=== PATIENT | female | born 1935 | race Caucasian/White ===

== ENCOUNTER → 2016-07-01 | Outpatient (CLI) | payer MEDICARE ==
[~2016-07-01] MED LIST: ASPI-558 PO; ATEN-39 PO; BETA1TAB44 PO; CALC-494 PO; LEVO50TA11 PO; LEVO50TA51 PO; SIMV20TA89 PO; ZOLE5INF IV
--- NOTE | 2016-07-01 11:45 | DI ---
INDICATION: ITS.REASON: C90.00 Multiple myeloma not having achieved remission PROCEDURE: CHEST 2-VIEWS UPRIGHT (PA \T\ LAT) Encounter: Subsequent COMPARISON: May 18, 2016 FINDINGS: Linear atelectasis and scarring in the left lower lobe is again noted. The small pleural-based nodules in the left lung are better seen by CT. Right pleural effusion has resolved. No pneumothorax or significant pleural fluid currently. Right lung is clear. Heart size and mediastinal contours are stable. Pulmonary vascularity is normal. Impression: Resolved right pleural effusion. No acute cardiopulmonary disease. .
== END ==
LOC: IMA 09:15
PROVIDERS: ATTEND Internal Medicine Hematology & Oncology
DX: C90.00 Multiple myeloma not having achieved remission (principal); J98.4 Other disorders of lung

== ENCOUNTER 2016-08-01 15:31 | Emergency (ER) | payer MEDICARE ==
[~2016-08-01] VITALS: Ht 158.8 cm; Wt 54.0 kg
[2016-08-01 15:36] VITALS: TEMP 97.1; Ht 158.8 cm; Wt 54.0 kg
--- NOTE | 2016-08-01 15:46 | NUR ---
PROVIDER DR BARRERA IN ROOM W/ PT.
--- NOTE | 2016-08-01 15:55 | NUR ---
UA COLLECTED VOIDED DARK ARMBER CLEAR URINE.
[2016-08-01 16:12] LABS: BLOOD, URINE NEGATIVE (NEGATIVE); COLOR,URINE YELLOW (YELLOW); LEUKOCYTE ESTERASE ,URINE NEGATIVE (NEGATIVE); NITRITE,URINE NEGATIVE (NEGATIVE); UROBILINOGEN,URINE 0.2 EU/DL (NORMAL)
[2016-08-01 16:28] LABS: BASOPHILS % (AUTO) 0.2 % (0-2); EOSINOPHILS # (AUTO) 0.1 T/MM3 (0-0.5); EOSINOPHILS % (AUTO) 1.1 % (0-4); HGB - HEMOGLOBIN 12.4 GM/DL (12-16); IMMATURE GRANULOCYTE # (AUTO) 0.01 T/MM3 (0.00-0.03); IMMATURE GRANULOCYTE % (AUTO) 0.1 % (0.0-0.5); LYMPHOCYTES # (AUTO) 0.7 T/MM3 (1-4.8); LYMPHOCYTES % (AUTO) 8.1 % (23-45); MEAN CORPUSCULAR HGB 32.4 UUG (26-34); MEAN CORPUSCULAR HGB CONC(MCHC 34.4 GM/DL (31-37); MEAN PLATELET VOLUME 8.7 UM3 (9.4-12.4); MONOCYTES # (AUTO) 0.5 T/MM3 (0-0.8); MONOCYTES % (AUTO) 6.5 % (0-9.0); NEUTROPHILS #(AUTO)-ABSOLUTE 6.8 T/MM3 (1.8-7.7); RED BLOOD COUNT 3.83 M/MM3 (4.00-5.20); WBC - WHITE BLOOD COUNT 8.1 T/MM3 (4.5-11.0)
[2016-08-01] MEDS ORDERED: NEOMYCIN/POLYM/BACITR OINT PACKET TOP ONE (16:30)
[2016-08-01 16:36] LABS: ALBUMIN 4.2 G/DL (3.5-5.0); ALBUMIN/GLOBULIN RATIO 1.6 RATIO (1.1-2.2); ALKALINE PHOSPHATASE 31 U/L (38-126); ALT (SGPT) 34 U/L (9-52); ANION GAP 12 MEQ/L (5-15); AST (SGOT) 25 U/L (14-36); BUN/CREATININE RATIO 19 RATIO (6-26); CALCIUM 9.7 MG/DL (8.4-10.2); CHLORIDE 91 MEQ/L (98-107); CO2 - CARBON DIOXIDE 30 MEQ/L (22-30); CREATININE 1.1 MG/DL (0.7-1.2); GLOMERULAR FILTRATION RATE 48; GLUCOSE 133 MG/DL (65-110); POTASSIUM 4.9 MEQ/L (3.6-5); SODIUM 133 MEQ/L (134-144); TOTAL PROTEIN 6.9 G/DL (6.3-8.2)
--- NOTE | 2016-08-01 16:50 | NUR ---
CT SCAN PT GONE TO CT SCAN.
--- NOTE | 2016-08-01 17:00 | NUR ---
CT SCAN PT BACK FROM CT SCAN.
--- NOTE | 2016-08-01 17:55 | ERPDOC ---
Departure Disposition Decision Date: August 01, 2016 Disposition Decision Time: 18:25 Disposition: 01 DISCHARGED HOME, SELF-CARE Impression Impression Impression: Primary Impression: Confusion Additional Impression: Frontal mass of brain Severity: Moderate Condition: Stable Seen By: Physician only Referrals: YON NETTLES MD (PCP) Patient Instructions: Hypertension (ED) Problems/Meds/Labs Reviewed?: Yes Medications reviewed and manag: Yes Additional Instructions: You have a Radiology appointment in the morning tomorrow. I have added an MRI BRAIN to your schedule. Please call Dr Blood's office after it is completed to let him know. It will take a day or two to be read and he may want to add other tests before you see him. Your blood pressure is elevated tonight and you were given a dose of Lisinopril 10mg. Follow up care ordered?: Yes Mental Status: Alert HPI - CVA/Neuro General Chief Complaint: Altered Mental Status Stated Complaint: DIFFICULTY THINKING CLEARLY Time Seen by Provider: 15:46 HPI - CVA/NEURO Initial Comments 81-year-old female presents with progressive difficulty thinking. She was [facility] daughter today and tried to answer written question with yes or no. She began writing sentence then Marking things out, ultimately writing things that made no sense. Her daughter at the thinking about it and realized that she has had some confusion which has been progressing over the last several weeks. Daughter state that she is forgetful, seems to answer vaguely when asked questions. Has difficulty keeping up in conversation, but has done a fairly good job of covering it by being vague. No fevers or chills, no dysuria. Patient did have an episode like this previously when she had a UTI. She does have a history of endometrial cancer and there is apparently some metastatic disease. She is currently seeing Dr. Blood. She is scheduled for some testing tomorrow with the daughters wanted to bring her in [facility] to get a better evaluation earlier. Patient has no cough, no history of dyspnea. Denies any muscle aches. States she feels good overall. She does have a history of hypertension, daughters think she may have missed her morning medication today, the patient thinks she took it. Allergies: Coded Allergies: No Known Drug Allergies (Verified Allergy, Unknown, 03/12/16) Past History Past Medical History Metabolic: hypertension Surgical History General: colonoscopy Vaccines Hx Influenza Vaccination: No (NOV 2014) Hx Pneumococcal Vaccination: Yes (3 YEARS AGO) Social History Smoking Status: Never smoker Does patient use chewing tobac: No Second Hand Exposure: No Substance Use Type: does not use Alcohol Intake: none Record Review Pertinent history updated: Yes Review of Systems General: see HPI Neurological General: see HPI All other Systems All Other Systems: Reviewed and Negative Physical Exam General General Nourishment: well nourished, well developed, appears stated age, no acute distress Vitals and Pain First Documented Vital Signs Date Time Temp Pulse Resp B/P Pulse Ox O2 Delivery O2 Flow Rate FiO2 08/01/16 15:36 97.1 82 18 191/93 92 Room Air Weight: Kilograms: 54.000 Height (feet): 5 Height (inches): 2.50 Triage Pain Scale: Comments Patient is extremely pleasant. However when she answers questions she does tend to hedge. Normal Exams: Head: Normocephalic w/o trauma Eyes: Pupils are PERRLA w/ EOMI, No scleral icterus, irritation, or foreign bodies noted Chest/Resp: Clear all [place], with good airflow, and symmetry bilaterally CV: Regular rate and rhythm, without murmur or gallop, Pulses 2+ all extremities, capillary refill, <2 seconds all ext., no pedal edema noted Abdomen: Bowel sounds positive, soft, non-tender, non-distended, no hepatosplenomegaly, masses or bruits noted Neurologic (brief) Neurological Brief: FOUND: CN w/o gross def to obs, DTR 2/4 all extremities, gait w/o gross def to obs, motor-no gross deficits, sensory-no gross deficits Comments Patient is alert and oriented 2, however she has difficulty answering specific questions. She often repeats part of the question within the answer. Differential Diagnoses Considering: Thrombotic CVA, Hemorrhagic CVA, Delirium, Dementia, Drug Overdose , Encephalitis, Hypothyroid, Medication Effect, Meningitis, Psychogenic Progress Results/Orders Orders Procedure Category Date Status Time Ua, Dip Wreflex LAB 08/01/16 Complete Microsc & Chemistry Quality Control Technician 16:02 Cbc W/Auto LAB 08/01/16 Complete Diff-Reflex Manual Cmp - Comprehensive LAB 08/01/16 Complete Metabolic Neomycin/Polymyxin/Bacitracin PHA 08/01/16 Complete (Neosporin 16:30 Tsh With Reflex T4 LAB 08/01/16 Complete Free 16:41 Urine Culture CARY 08/01/16 Logged 16:42 Ct Head W/O Contrast CT 08/01/16 Taken 16:47 Mri Brain W/O Contrast MRI 08/01/16 Logged 17:38 Lisinopril (Prinivil) PHA 08/01/16 Complete 18:00 Lab Results Laboratory Tests Test 08/01/16 15:55 08/01/16 16:09 08/01/16 16:13 Urine Collection Type Cleancatch-midstream Urine Color Yellow Urine Turbidity Clear Urine pH 5.5 Urine Specific [place] 1.025 Urine Protein Negative Urine Glucose (UA) Negative Urine Ketones Trace Urine Blood Negative Urine Nitrite Negative Urine Bilirubin Negative Urine Urobilinogen 0.2EU/DL Urine Leukocyte Esterase Negative Urinalysis Comment Microscopic not ind. Thyroid Stimulating Hormone (TSH) 0.89MIU/L White Blood Count 8.1T/MM3 Red Blood Count 3.83M/MM3 Hemoglobin 12.4GM/DL Hematocrit 36.0% Mean Corpuscular Volume 94.0UM3 Mean Corpuscular Hemoglobin 32.4UUG Mean Corpuscular Hemoglobin Concent 34.4GM/DL RDW Standard Deviation 40.8FL Platelet Count 291T/MM3 Mean Platelet Volume 8.7UM3 Immature Granulocyte % (Auto) 0.1% Neutrophils (%) (Auto) 84.0% Lymphocytes (%) (Auto) 8.1% Monocytes (%) (Auto) 6.5% Eosinophils (%) (Auto) 1.1% Basophils (%) (Auto) 0.2% Absolute Immature Granulocyte (auto 0.01T/MM3 Absolute Neutrophils (auto) 6.8T/MM3 Absolute Lymphocytes (auto) 0.7T/MM3 Absolute Monocytes (auto) 0.5T/MM3 Absolute Eosinophils (auto) 0.1T/MM3 Absolute Basophils (auto) 0.0T/MM3 Turbidity < 20 Sodium Level 133MEQ/L Potassium Level 4.9MEQ/L Chloride Level 91MEQ/L Carbon Dioxide Level 30MEQ/L Anion Gap 12MEQ/L Blood Urea Nitrogen 21.0MG/DL Creatinine 1.1MG/DL Glomerular Filtration Rate Calc 48 BUN/Creatinine Ratio 19RATIO Glucose Level 133MG/DL Calculated Osmolality 261MOSM/KG Calcium Level 9.7MG/DL Total Bilirubin 0.40MG/DL Icterus Index < 2 Aspartate Amino Transf (AST/SGOT) 25U/L Alanine Aminotransferase (ALT/SGPT) 34U/L Alkaline Phosphatase 31U/L Total Protein 6.9G/DL Albumin 4.2G/DL Globulin 2.7G/DL Albumin/Globulin Ratio 1.6RATIO Chemistry Specimen Hemolysis 28 Medications Current ED Medications Neomycin/ Polymyxin/ Bacitracin (Neosporin) 1 applic O ONCE TOP ; Start at 16:30; Stop 08/01/16 at 16:30; Status DC Lisinopril (Prinivil) 10 mg O ONCE PO Last administered on 08/01/16t 18:02; Start 08/01/16 at 18:00; Stop 08/01/16 at 18:01; Status DC Progress Progress Labs returned appropriate, TSH is normal as are other labs. UA is negative. CT head was ordered and left frontal hypodensity was noted. Radiologist called, explaining that his concern was there may be a metastatic or primary neoplasm. Based on the patient's history of endometrial cancer with some metastatic disease, that is of course my concern. She is set up for CT of chest and abdomen tomorrow, MRI of brain was added and she will be worked in for it. I did speak with radiology. Her daughter will come with her tomorrow morning and will call Dr. Blood's office after the MRI is completed to let them know that we had at that film. She is going to follow up with him on . I tried to answer questions, spoke with both of her daughters. Blood pressure has remained elevated, and is 202/100 at plan time of discharge. Therefore patient is being given lisinopril 10 mg by mouth. We will watch her for another 20-30 minutes and if pressure does not drop, we will reassess. AMAURI TREVIÑO MD August 01, 2016 17:55
[2016-08-01] MEDS ORDERED: LISINOPRIL 10 MG TABLET PO ONE (18:00)
--- NOTE | 2016-08-01 18:02 | NUR ---
PO MEDS GIVEN LISINPRIL CHARTED W/ PT TOLERANCE.
[2016-08-01 18:55] VITALS: BP 194/88; PULSE 73; RESP 18; O2SAT 94
--- NOTE | 2016-08-01 18:55 | NUR ---
DISCHARGE PT GIVEN INSTRUCTIONS FOR CONT CARE OF HYPERTENSION. PT VERBALIZED UNDERSTANDING OF CONTENT W/ CONT. PCP AND SIGNED FORM. PT LEFT ER ALERT, AMBULATORY W/O ASSIST VS CHARTED IN NO DISTRESS.
--- NOTE | 2016-08-02 07:52 | DI ---
Indication: ITS.REASON: confusion PROCEDURE: CT HEAD W/O CONTRAST: Encounter: Initial Comparison: None Technique: Axial CT images through the head were performed without contrast. Iterative Reconstruction dose reducing technique was utilized. FINDINGS: There is extensive vasogenic edema throughout the left cerebral hemisphere which appears to be due to a 2.5 cm left frontal lobe mass. There is some slight mass effect upon the anterior horn of the left lateral ventricle without evidence of midline shift. No acute intracranial hemorrhage. Scattered moderate periventricular white matter low-attenuation probably due to chronic microvascular ischemia. No acute territorial infarct identified. The visualized portions of the skull base, midface, and calvarium demonstrate no abnormality. The paranasal sinuses are well aerated and free of significant disease. The tympanic and mastoid cavities appear normal. IMPRESSION: Extensive vasogenic edema in the left frontal lobe probably due to a metastasis. Cerebral abscess or primary brain neoplasm would also be within the differential. Contrast enhanced brain MRI is recommended for further evaluation. There is a preliminary report by [facility]. .
== END 2016-08-01 18:55 | disposition home or self-care (01) ==
LOC: ED 15:31
DX: R41.0 Disorientation, unspecified (principal); G93.89 Other specified disorders of brain; I10 Essential (primary) hypertension
CPT/HCPCS: 36415; 70450; 80053; 81003; 84443; 85025; 87086; 99284; A9270

== ENCOUNTER → 2016-08-02 | Outpatient (CLI) | payer MEDICARE ==
[~2016-08-02] MED LIST changes: +GADOBUTROL 10mMol/10ml INJECTION IV ONE; +SALINE FLUSH 10ml SYRINGE ONE
--- NOTE | 2016-08-03 09:31 | DI ---
Indication: ITS.REASON: R94.02, abnormal head CT, history of metastatic cancer PROCEDURE: MRI BRAIN W/WO CONTRAST: Encounter: Initial Comparisons: Head CT dated August 01, 2016 Technique: Multiplanar, multisequence, MR imaging of the head with and without contrast was acquired. Contrast: 5 mL of Gadavist FINDINGS: The ventricles are stable. Extensive vasogenic edema throughout the left cerebral hemisphere involving the frontal and parietal lobes. There is a T2 heterogeneously hyperintense, T1 hypointense ring-enhancing mass in the left frontal lobe best seen on axial postcontrast image #22 measuring 2.7 x 2.2 x 2.9 cm in size. There is slight mass effect with rightward midline shift measuring approximately 3 mm. Slight effacement of the anterior horn of the left lateral ventricle. No acute intracranial hemorrhage. No additional enhancing masses identified. There is mild generalized atrophy and scattered chronic microvascular ischemic white matter disease seen throughout the remaining frontal and parietal lobes. No acute diffusion restriction to suggest infarct or abscess. The mastoid air cells and paranasal sinuses are grossly clear. Orbits are unremarkable for age. Impression: Ring-enhancing left frontal lobe mass most likely representing a metastatic lesion. .
== END ==
LOC: IMA 18:35
PROVIDERS: ATTEND Internal Medicine Hematology & Oncology
DX: G93.89 Other specified disorders of brain (principal); R94.02 Abnormal brain scan
CPT/HCPCS: 70553; A9585

== ENCOUNTER → 2016-08-04 | Outpatient (CLI) | payer MEDICARE ==
[~2016-08-04] MED LIST changes: -GADOBUTROL 10mMol/10ml INJECTION IV ONE; -SALINE FLUSH 10ml SYRINGE ONE
--- NOTE | 2016-08-04 12:28 | DI ---
Indication: ITS.REASON: C90.00 Multiple myeloma not having achieved remission PROCEDURE: CT CHEST/ABDOMEN/PELVIS W/O: Encounter: Subsequent Comparison: CT chest, abdomen and pelvis dated May 18, 2016 Technique: Axial CT images were performed through the chest, abdomen and pelvis without intravenous contrast. Coronal and sagittal two-dimensional reformats. Automated Exposure Control and Iterative Reconstruction dose reducing techniques were utilized. Findings: Chest: Multiple pleural-based metastases in the left lung have grown since the prior study. Process Control Technician metastasis on axial image #15 in the superior segment left lower lobe now measures 1.6 cm diameter compared to 1.1 cm on the comparison study. Right lower lobe metastatic lesion is also enlarged on image #25, now measuring 0.9 cm compared to 0.8 cm previously. There is a new area of groundglass opacity in the right upper lobe that could be inflammatory, infectious or metastatic. Multiple pleural-based nodules in the left lower lobe have also increased in size with a cluster just below the left hilum measuring up to 2.2 cm in diameter. Multiple new and enlarging small areas of subpleural nodularity on the left. The central airways are patent. No axillary or mediastinal adenopathy. New metastases in the left cardiophrenic angle region with pleural thickening. Multiple small nodules adjacent to the left ventricle. Heart size is stable. Trace pericardial effusion. Abdomen/pelvis: The unenhanced contours of the liver show a region of low attenuation peripherally in the right lobe that is slightly smaller than the comparison study. No new contour deforming liver masses. The gallbladder is within normal limits. The spleen, pancreas, adrenal glands and kidneys are stable. No abdominal or pelvic lymphadenopathy. Bladder is grossly normal. Uterus is absent. Small amount of free pelvic fluid. No evidence of a bowel obstruction. Bone windows show degenerative changes in the thoracic spine without lytic or blastic lesion. Impression: Continued worsening predominantly pleural-based metastatic disease in the chest. .
== END ==
LOC: IMA 10:31
PROVIDERS: ATTEND Internal Medicine Hematology & Oncology
DX: C90.00 Multiple myeloma not having achieved remission (principal); C78.2 Secondary malignant neoplasm of pleura

== ENCOUNTER → 2016-08-05 | Outpatient (CLI) | payer MEDICARE ==
--- NOTE | 2016-08-05 14:14 | DI ---
Indication: ITS.REASON: C79.31 Secondary malignant neoplasm of brain Comparison: Brain MRI dated August 02, 2016 PROCEDURE: CT of the head without contrast. Technique: Axial CT images were performed through the head without intravenous contrast. Coronal and sagittal two-dimensional reformats. Automated Exposure Control and Iterative Reconstruction dose lowering techniques were utilized. Findings: Exam is performed for radiation therapy treatment planning purposes. There is redemonstration of the large metastasis in the left frontal lobe with extensive surrounding vasogenic edema. This is better evaluated on the recent MRI. There is no acute intracranial hemorrhage. Slight rightward midline shift is again noted with some effacement of the anterior horn left lateral ventricle. Ventricles are stable. No obvious new metastatic disease or territorial stroke. Impression: Radiation therapy treatment planning exam with findings as above. .
== END ==
LOC: IMA 13:06
PROVIDERS: ATTEND Radiology Radiation Oncology
DX: C79.31 Secondary malignant neoplasm of brain (principal)